=== PATIENT | female | born 1970 | race Asian ===

== ENCOUNTER → 2016-07-13 | Outpatient (CLI) | payer MEDICAID ==
[~2016-07-13] MED LIST: LEVO25TA4 PO; LEVO50TA5 PO; OMEP-110 PO; OMEP10CA4 PO
[2016-07-13 12:47] LABS: HEMOGLOBIN 14.6 g/dL (11.7-16.4)
== END | disposition home or self-care (01) ==
LOC: STAR 11:46
PROVIDERS: ATTEND Obstetrics & Gynecology
DX: Z01.818 Encounter for other preprocedural examination (principal); N83.201 Unspecified ovarian cyst, right side; D25.9 Leiomyoma of uterus, unspecified; R10.2 Pelvic and perineal pain; Z90.710 Acquired absence of both cervix and uterus; Z90.722 Acquired absence of ovaries, bilateral
CPT/HCPCS: 36415; 82565; 85025

== ENCOUNTER 2016-07-18 05:34 | Observation (INO) | payer MEDICAID ==
[~2016-07-18] VITALS: Ht 162.6 cm; Wt 62.1 kg
[2016-07-18] MEDS ORDERED: LACTATED RINGERS 1,000 ML IV SCH (06:11)
[2016-07-18 06:12] VITALS: BP 152/102
[2016-07-18] MEDS ORDERED: LIDOCAINE 1%, 2ML SQ PRN (06:30)
[2016-07-18 06:45] LABS: HCG UR OBC PASS
[2016-07-18] MEDS ORDERED: SCOPOLAMINE PATCH, 1.5MG PATCH.TD72 TD STA (06:53)
[2016-07-18] MEDS ORDERED: FENTANYL PF 250 MCG/5ML ONE (07:23)
[2016-07-18] MEDS ORDERED: MIDAZOLAM 1 MG/ML, 2ML ONE (07:23)
[2016-07-18] MEDS ORDERED: BUPIVACAINE/PF-EPI 0.25% 1:200K INFIL ONE (08:03)
[2016-07-18] MEDS ORDERED: HYDROmorphone 1 MG/ML, 1ML ONE (08:36)
[2016-07-18] MEDS ORDERED: OXYcodone 5 MG/5 ML ORAL.SOL UDC PO PRN (09:00)
[2016-07-18] MEDS ORDERED: hydrALAzine 20 MG/ML, 1ML IV PRN (09:00)
[2016-07-18] MEDS ORDERED: METOPROLOL 1 MG/ML, 5ML IV PRN (09:00)
[2016-07-18] MEDS ORDERED: LABETALOL 5MG/ML, 20ML IV PRN (09:00)
[2016-07-18] MEDS ORDERED: ACETAMINOPHEN 325 MG TABLET PO PRN (09:00)
[2016-07-18] MEDS ORDERED: MIDAZOLAM 1 MG/ML, 2ML IV PRN (09:00)
[2016-07-18] MEDS ORDERED: EPHEDRINE 50 MG/ML, 1ML IVPush PRN (09:00)
[2016-07-18] MEDS ORDERED: PROMETHAZINE 25 MG/ML, 1ML IV PRN (09:00)
[2016-07-18] MEDS ORDERED: MEPERIDINE/PF 25MG/0.5ML IVPush PRN (09:00)
[2016-07-18] MEDS ORDERED: ONDANSETRON 2MG/ML, 2ML IVPush PRN (09:00)
[2016-07-18] MEDS ORDERED: METOCLOPRAMIDE 5 MG/ML, 2ML IV PRN (09:00)
[2016-07-18] MEDS ORDERED: HYDROmorphone 2 MG/ML, 1ML ONE (10:42)
[2016-07-18] MEDS ORDERED: ONDANSETRON 2MG/ML, 2ML ONE (10:42)
[2016-07-18] MEDS ORDERED: FENTANYL PF 100 MCG/2ML ONE (10:42)
[2016-07-18] MEDS: FENTANYL PF 100 MCG/2ML IV PRN ×3 (10:45→11:45)
[2016-07-18] MEDS: HYDROmorphone 1 MG/ML, 1ML IV PRN ×3 (10:48→11:33)
[2016-07-18] MEDS: KETOROLAC 30 MG/1 ML IVPush PRN (12:42)
[2016-07-18] MEDS ORDERED: CEFAZOLIN 1,000 MG ONE (15:27)
[2016-07-18] MEDS ORDERED: METOCLOPRAMIDE 5 MG/ML, 2ML ONE (15:27)
[2016-07-18] MEDS ORDERED: PROPOFOL 10 MG/ML, 20ML ONE (15:27)
[2016-07-18] MEDS ORDERED: DEXAMETHASONE 4 MG/ML, 1ML ONE (15:27)
[2016-07-18] MEDS ORDERED: ROCURONIUM 10 MG/ML ONE (15:27)
[2016-07-18] MEDS ORDERED: GLYCOPYRROLATE 0.2MG/1ML ONE (15:27)
[2016-07-18] MEDS ORDERED: PHENYLEPHRINE 10 MG/ML ONE (15:27)
[2016-07-18] MEDS: SIMETHICONE 80 MG CHEW TAB PO SCH ×2 (16:12→21:00)
[2016-07-18] MEDS: D5%-LACTATED RINGERS 1,000 ML IV SCH ×2 (16:12→23:58)
[2016-07-18] MEDS: OXYcodone/APAP 5/325MG TABLET PO PRN (17:32)
[2016-07-18 20:00] VITALS: BP 126/82
[2016-07-18] MEDS: DOCUSATE 100 MG CAPSULE PO SCH (21:00)
[2016-07-19 00:13] VITALS: BP 125/75
[2016-07-19 03:42] VITALS: BP 113/68
[2016-07-19 06:58] VITALS: BP 120/71
[2016-07-19] MEDS: D5%-LACTATED RINGERS 1,000 ML IV SCH ×3 (08:53→21:05)
[2016-07-19] MEDS: KETOROLAC 30 MG/1 ML IVPush PRN ×2 (08:53→18:57)
[2016-07-19] MEDS: SIMETHICONE 80 MG CHEW TAB PO SCH ×3 (08:54→21:05)
[2016-07-19] MEDS: DOCUSATE 100 MG CAPSULE PO SCH ×3 (08:54→21:05)
[2016-07-19] MEDS: ONDANSETRON 2MG/ML, 2ML IVPush PRN ×2 (09:02→14:26)
[2016-07-19] MEDS: OXYcodone/APAP 5/325MG TABLET PO PRN ×2 (09:58→14:26)
[2016-07-19 13:39] VITALS: BP 114/74
[2016-07-19 20:06] VITALS: BP 123/76
[2016-07-20] MEDS: KETOROLAC 30 MG/1 ML IVPush PRN ×2 (01:48→08:02)
[2016-07-20 01:49] VITALS: BP 139/83
[2016-07-20 06:43] VITALS: BP 130/84
[2016-07-20] MEDS: D5%-LACTATED RINGERS 1,000 ML IV SCH (07:30)
[2016-07-20] MEDS: SIMETHICONE 80 MG CHEW TAB PO SCH (07:56)
[2016-07-20] MEDS: DOCUSATE 100 MG CAPSULE PO SCH (07:56)
[2016-07-20] MEDS ORDERED: OXYcodone/APAP 5/325MG TABLET PO PRN (10:30)
[2016-07-20 13:46] VITALS: BP 135/84
== END 2016-07-20 15:30 | disposition home or self-care (01) ==
LOC: OUT 05:34 → 4NOR 12:10 → INTOOBSV 22:17 → 4NOR 22:17 → DCLOUNGE 07-20 15:11
PROVIDERS: ADMIT Obstetrics & Gynecology; ATTEND Obstetrics & Gynecology
DX: D25.9 Leiomyoma of uterus, unspecified (principal); N80.9 Endometriosis, unspecified; K66.0 Peritoneal adhesions (postprocedural) (postinfection); E03.9 Hypothyroidism, unspecified; K21.9 Gastro-esophageal reflux disease without esophagitis; N85.8 Other specified noninflammatory disorders of uterus; Z98.890 Other specified postprocedural states
CPT/HCPCS: 36415; 58150; 74000; 81025; 85014; 85018; 88307; 96374; 96375; 96376; G0378; J0690; J1100; J1170; J1885; J2250; J2370; J2405; J2704; J2765; J3010; J7120; J3490; J7121

== ENCOUNTER → 2016-09-29 | Outpatient (CLI) | payer MEDICAID | END | disposition home or self-care (01) | LOC: CFH 14:52 | PROVIDERS: ATTEND Family Medicine | DX: Z12.31 Encounter for screening mammogram for malignant neoplasm of breast (principal) | CPT/HCPCS: G0202 ==

== ENCOUNTER 2020-09-17 09:17 | Outpatient (CLI) | payer MEDICAID ==
[~2020-09-17 09:17] MED LIST changes: -OMEP10CA4 PO; +OMEP10CA5 PO
== END 2020-09-17 23:59 | disposition home or self-care (01) ==
LOC: CFH 09:17
PROVIDERS: ATTEND Family Medicine
DX: Z12.31 Encounter for screening mammogram for malignant neoplasm of breast (principal); Z12.39 Encounter for other screening for malignant neoplasm of breast
CPT/HCPCS: 76641; 77063; 77067